=== PATIENT | female | born 1965 | race Caucasian/White ===

== ENCOUNTER 2020-10-10 14:12 | Emergency (ER) | payer BC ==
[~2020-10-10] VITALS: Ht 162.6 cm; Wt 90.9 kg
[~2020-10-10 14:12] MED LIST: ASPIRIN 81M81 MG/TA2 PO; ASPIRIN E.C. 8181 MG PO; BRILINTA90 MG PO; CALCIUM 500500 M2 PO; CIPRO 500MG TA500 MG PO; CLARITIN 1010 MG/TAB PO; CRANBERRY1 CAP PO; DUO-KAPS1 CAP PO; FERROUS GLUCON324 MG PO; FERROUS SU325 MG/TAB PO; FISH OIL CONCEN1 SG2 PO; HCTZ 25MG TAB25 MG PO; IMDUR 30MG30 MG/TAB PO; LIPITOR 10MG10 MG PO; LIPITOR 40MG TA40 MG PO; LORTAB 5/500 501 TAB PO; NITROSTAT0.4 MG/TAB SL; NORVASC 5MG5 MG/TAB PO; PLAVIX 75MG TAB75 MG PO; PRINIVIL2.5 MG PO; PRINIVIL40 MG PO; PRINIVIL5 MG PO; TENORMIN 2525 MG/TAB PO; TENORMIN 5050 MG/TAB PO; VITAMIN B125000 MCG SL; ZESTRIL2.5 MG PO
[2020-10-10 14:17] VITALS: TEMP 98.3
[2020-10-10 14:44] LABS: BASO % 0.5 % (0.0-2.0); EOS # 0.1 (0.0-0.7); EOS % 0.8 % (0-4.0); GRAN # 5.8 (1.4-6.5); GRAN % 65.2 % (42.2-75.2); HEMATOCRIT 44.2 % (37.0-47.0); HEMOGLOBIN 14.8 g/dl (12.5-16.0); LYMPH # 2.2 (1.2-3.4); LYMPH % 25.1 % (20.0-51.0); MEAN CELL VOLUME 85 fl (80.0-100.0); MEAN CORPUSCULAR HEMOGLOBIN 28 pg (27.0-31.0); MEAN CORPUSCULAR HGB CONC 34 g/dl (33.0-37.0); MEAN PLATELET VOLUME 10.1 fl (7.4-10.4); MONO # 0.7 (0.1-0.6); MONO % 8.2 % (1.7-9.3); PLATELET COUNT 239 K/mm3 (130-400); RED BLOOD COUNT 5.21 M/mm3 (4.10-5.30); REDCELL DISTRIBUTION WIDTH-CV 13.4 % (11.5-14.5)
[2020-10-10 14:47] LABS: INR 1.1 (0.8-3.0); PROTHROMBIN TIME 12.4 SECONDS (9.7-12.8)
[2020-10-10 14:49] LABS: PARTIAL THROMBOPLASTIN TIME 40.8 SECONDS (26.0-37.0)
[2020-10-10 14:52] LABS: ALANINE AMINOTRANSFERASE 16 U/L (4-34); ALKALINE PHOSPHATASE 110 U/L (50-136); ANION GAP 6 mmol/L (7-16); AST,SGOT 22 U/L (15-37); BILIRUBIN,TOTAL 0.5 mg/dL (0.0-1.0); BLOOD UREA NITROGEN 10 mg/dL (7-17); CALCIUM 9.4 mg/dL (8.4-10.2); CARBON DIOXIDE 25 mmol/L (22-30); CHLORIDE 108 mmol/L (98-107); CREATININE, serum 0.63 (0.52-1.25); GLUCOSE 114 mg/dL (74-106); POTASSIUM 3.9 mmol/L (3.4-5.0); SODIUM 139 mmol/L (137-145); TOTAL PROTEIN 7.4 gm/dL (6.4-8.2)
[2020-10-10 15:07] LABS: TROPONIN-I < 0.012 ng/mL (0.000-0.035)
[2020-10-10 17:12] VITALS: BP 112/74; PULSE 57
== END 2020-10-10 17:12 | disposition home or self-care (01) ==
LOC: COL.ER 14:12
PROVIDERS: Family Medicine
DX: I10 Essential (primary) hypertension (principal); R07.89 Other chest pain; I25.10 Atherosclerotic heart disease of native coronary artery without angina pectoris; F17.210 Nicotine dependence, cigarettes, uncomplicated; Z95.5 Presence of coronary angioplasty implant and graft; Z79.82 Long term (current) use of aspirin; Z79.899 Other long term (current) drug therapy

== ENCOUNTER 2020-12-05 07:04 | Emergency (ER) | payer BC ==
[~2020-12-05] VITALS: Ht 162.6 cm; Wt 100.0 kg
[2020-12-05 07:34] VITALS: TEMP 98.4
[2020-12-05 08:01] LABS: COLLECTION METHOD CLEAN CATCH
[2020-12-05 08:04] LABS: BASO % 0.5 % (0.0-2.0); EOS % 0.3 % (0-4.0); GRAN # 2.3 (1.4-6.5); GRAN % 62.4 % (42.2-75.2); HEMOGLOBIN 14.9 g/dl (12.5-16.0); LYMPH # 0.7 (1.2-3.4); MEAN CELL VOLUME 86 fl (80.0-100.0); MEAN CORPUSCULAR HEMOGLOBIN 28 pg (27.0-31.0); MEAN CORPUSCULAR HGB CONC 33 g/dl (33.0-37.0); MEAN PLATELET VOLUME 9.6 fl (7.4-10.4); MONO # 0.7 (0.1-0.6); MONO % 18.3 % (1.7-9.3); PLATELET COUNT 188 K/mm3 (130-400); RED BLOOD COUNT 5.26 M/mm3 (4.10-5.30); REDCELL DISTRIBUTION WIDTH-CV 13.4 % (11.5-14.5)
[2020-12-05 08:17] LABS: PH 6 (5-8); URINE APPEARANCE Hazy; URINE BACTERIA None Seen /hpf; URINE BILIRUBIN Negative (NEGATIVE); URINE BLOOD 2+ (NEGATIVE); URINE COLOR Yellow; URINE GLUCOSE Negative (NEGATIVE); URINE KETONE Negative (NEGATIVE); URINE LEUKOCYTE ESTERASE Negative (NEGATIVE); URINE NITRATE Negative (NEGATIVE); URINE PROTEIN(semi-quant) Negative (NEGATIVE); URINE UROBILINOGEN Negative (NEGATIVE)
[2020-12-05 08:21] LABS: ALBUMIN 4.1 gm/dL (3.5-5.0); BILIRUBIN,TOTAL 0.4 mg/dL (0.0-1.0); CALCIUM 8.8 mg/dL (8.4-10.2); CREATININE, serum 0.67 (0.52-1.25); POTASSIUM 3.9 mmol/L (3.4-5.0); TOTAL PROTEIN 7.5 gm/dL (6.4-8.2)
[2020-12-05] MEDS ORDERED: ZOFRAN ODT4 MG PO (11:51)
[2020-12-05] MEDS ORDERED: NORCO 325 MG-51 TAB PO (11:51)
[2020-12-05 12:16] VITALS: BP 142/102; PULSE 64
== END 2020-12-05 12:16 | disposition home or self-care (01) ==
LOC: COL.ER 07:04
PROVIDERS: Emergency Medicine
DX: U07.1 COVID-19 (principal); K81.9 Cholecystitis, unspecified; D72.819 Decreased white blood cell count, unspecified; I25.10 Atherosclerotic heart disease of native coronary artery without angina pectoris; F17.210 Nicotine dependence, cigarettes, uncomplicated; Z98.84 Bariatric surgery status; Z79.82 Long term (current) use of aspirin
CPT/HCPCS: J2270; J2405; J2543; J7030

== ENCOUNTER → 2021-01-09 | Outpatient (CLI) | payer BC ==
[~2021-01-09] MED LIST changes: +NORCO 325 MG-51 TAB PO; +ZOFRAN ODT4 MG PO
[2021-01-09 16:01] LABS: HEMATOCRIT 45.2 % (37.0-47.0); HEMOGLOBIN 15.1 g/dl (12.5-16.0); MEAN CELL VOLUME 86 fl (80.0-100.0); MEAN CORPUSCULAR HEMOGLOBIN 29 pg (27.0-31.0); MEAN CORPUSCULAR HGB CONC 33 g/dl (33.0-37.0); MEAN PLATELET VOLUME 9.6 fl (7.4-10.4); PLATELET COUNT 193 K/mm3 (130-400); RED BLOOD COUNT 5.27 M/mm3 (4.10-5.30); REDCELL DISTRIBUTION WIDTH-CV 13.8 % (11.5-14.5)
[2021-01-09 16:13] LABS: ALBUMIN 4.3 gm/dL (3.5-5.0); BILIRUBIN,TOTAL 0.7 mg/dL (0.0-1.0); CALCIUM 9.4 mg/dL (8.4-10.2); CREATININE, serum 0.81 (0.52-1.25); POTASSIUM 4.1 mmol/L (3.4-5.0); TOTAL PROTEIN 7.8 gm/dL (6.4-8.2)
== END ==
LOC: COL.LAB 15:37
DX: K80.12 Calculus of gallbladder with acute and chronic cholecystitis without obstruction (principal)

== ENCOUNTER → 2021-01-15 | Emergency (ER) | payer BC ==
[~2021-01-15] VITALS: Ht 162.6 cm; Wt 90.9 kg
[2021-01-15 19:42] VITALS: BP 155/105; PULSE 85; TEMP 99.8
[2021-01-15 20:20] LABS: BASO % 0.3 % (0.0-2.0); EOS % 0.3 % (0-4.0); GRAN # 5.9 (1.4-6.5); GRAN % 76.4 % (42.2-75.2); HEMATOCRIT 42.1 % (37.0-47.0); HEMOGLOBIN 14.5 g/dl (12.5-16.0); LYMPH # 1.2 (1.2-3.4); LYMPH % 15.8 % (20.0-51.0); MEAN CELL VOLUME 82 fl (80.0-100.0); MEAN CORPUSCULAR HEMOGLOBIN 28 pg (27.0-31.0); MEAN CORPUSCULAR HGB CONC 34 g/dl (33.0-37.0); MEAN PLATELET VOLUME 9.6 fl (7.4-10.4); MONO # 0.5 (0.1-0.6); MONO % 6.7 % (1.7-9.3); PLATELET COUNT 230 K/mm3 (130-400); RED BLOOD COUNT 5.14 M/mm3 (4.10-5.30); REDCELL DISTRIBUTION WIDTH-CV 13.2 % (11.5-14.5)
[2021-01-15 20:33] LABS: ALBUMIN 4.1 gm/dL (3.5-5.0); BILIRUBIN,TOTAL 0.9 mg/dL (0.0-1.0); C-REACTIVE PROTEIN 1.5 mg/dL (0.0-0.9); CALCIUM 8.8 mg/dL (8.4-10.2); CREATININE, serum 0.57 (0.52-1.25); POTASSIUM 3.6 mmol/L (3.4-5.0); TOTAL PROTEIN 7.5 gm/dL (6.4-8.2)
== END ==
LOC: COL.ER 19:27
PROVIDERS: Family Medicine
DX: K80.50 Calculus of bile duct without cholangitis or cholecystitis without obstruction (principal); I10 Essential (primary) hypertension; I25.10 Atherosclerotic heart disease of native coronary artery without angina pectoris; Z20.822 Contact with and (suspected) exposure to COVID-19; Z79.82 Long term (current) use of aspirin; Z79.02 Long term (current) use of antithrombotics/antiplatelets; Z79.899 Other long term (current) drug therapy
CPT/HCPCS: J1885; J2405; J7120

== ENCOUNTER 2021-01-25 09:35 | Day surgery (SDC) | payer BC ==
[2021-01-25] VITALS (8 sets, daily range): BP systolic 122–152; BP diastolic 75–93; PULSE 61–78; TEMP 98–98.3
[~2021-01-25] VITALS: Ht 162.6 cm; Wt 99.4 kg
[2021-01-25] MEDS ORDERED: PLAVIX 75MG TAB75 MG PO (10:27)
--- NOTE | 2021-01-25 11:43 | NUR ---
Patient states that she is tired of waiting for surgery and wants to go home. States she does not understand why she was called in early by the office to have to wait. Explained the delay and asissted up to the bathroom. Voids and returns to room. Will notify Dr. Gomez.
--- NOTE | 2021-01-25 11:50 | NUR ---
Dr. Gomez in the room and talks with the patient.
[2021-01-25] MEDS ORDERED: NORCO 325 MG-51 TAB PO (14:47)
--- NOTE | 2021-01-25 15:30 | NUR ---
Patient returns to room 2 per cart from PACU accompanied by Kavita GONZÁLES and is awake and taking ice chips. Bandaids x5 on abdomen clean and dry. IV fluids infusing and site is free of redness. Temp 98.7 and sats 96% on 2L per nasal cannula. Siderails up x2 and call light in reach. Spouse in room.
--- NOTE | 2021-01-25 15:45 | NUR ---
Resting with eyes closed and offers no complaints of pain or nausea.
--- NOTE | 2021-01-25 16:00 | NUR ---
Continues to rest and offers no complaints.
--- NOTE | 2021-01-25 16:15 | NUR ---
More awake and drinking water. Denies nausea and states discomfort tolerable.
--- NOTE | 2021-01-25 16:45 | NUR ---
Assisted up to the bathroom and voids. Returns to room. Had bloody drainage from the incision below the umbilicus. Band aid changed. No active bleeding noted at this time.
--- NOTE | 2021-01-25 16:45 | NUR ---
IV to INT. Spouse in room. Call light in reach.
--- NOTE | 2021-01-25 17:00 | NUR ---
Tolerates water and crackers. Offers no complaints of pain or nausea.
--- NOTE | 2021-01-25 17:08 | NUR ---
Medicated with Mobile 5mg one tab for pain at 07/06.
--- NOTE | 2021-01-25 17:39 | NUR ---
States pain medications effective. INT needle discontinued and site is free of redness. Patient sitting up dressing self. No drainage noted from incisional areas.
--- NOTE | 2021-01-25 17:46 | NUR ---
Patient dismissal instructions given and voices understanding.
--- NOTE | 2021-01-25 17:49 | NUR ---
Patient dismissed to home driven by spouse and taken to the emergency room entrance per wheelchair and asissted into vehicle with dismissal instructions in hand.
== END 2021-01-25 17:49 | disposition home or self-care (01) ==
LOC: SDCO 09:35
DX: K80.12 Calculus of gallbladder with acute and chronic cholecystitis without obstruction (principal); I25.10 Atherosclerotic heart disease of native coronary artery without angina pectoris; I11.0 Hypertensive heart disease with heart failure; I50.9 Heart failure, unspecified; E78.5 Hyperlipidemia, unspecified; D64.9 Anemia, unspecified; F17.210 Nicotine dependence, cigarettes, uncomplicated; Z79.82 Long term (current) use of aspirin; Z79.899 Other long term (current) drug therapy; Z79.02 Long term (current) use of antithrombotics/antiplatelets; Z95.1 Presence of aortocoronary bypass graft; Z98.84 Bariatric surgery status
CPT/HCPCS: J0690; J1100; J1885; J2370; J2405; J2704; J3010; J7050; J7120

== ENCOUNTER 2021-09-10 22:26 | Emergency (ER) | payer BC ==
[~2021-09-10] VITALS: Ht 162.6 cm; Wt 90.9 kg
[2021-09-10 22:34] VITALS: TEMP 98
[2021-09-10 23:17] VITALS: BP 151/96; PULSE 83
== END 2021-09-10 23:18 | disposition home or self-care (01) ==
LOC: COL.ER 22:26
DX: H10.9 Unspecified conjunctivitis (principal); F17.210 Nicotine dependence, cigarettes, uncomplicated; Z28.310 Unvaccinated for COVID-19